=== PATIENT | female | born 1990 | race African-American/Black ===

== ENCOUNTER 2025-07-15 23:12 | Inpatient (IN) ==
[2025-07-16] MEDS ORDERED: LIDOCAINE 1% LOCAL 20 ML VIAL INFIL PRN (00:05)
[2025-07-16] MEDS ORDERED: OXYTOCIN 30 UNITS/NSS 30 UNITS/500 ML BAG IV PRN ×2 (00:05→11:40)
[2025-07-16 00:51] LABS: Hematocrit (blood only) 37.3 % (37.0-47.0); Hemoglobin 12.0 g/dL (12.0-16.0); Mean Corpuscular Hemoglobin 22.7 pg (25.0-34.0); Mean Corpuscular Volume 70.5 fL (80.0-100.0); Platelet Count 257 K/uL (130-400); RDW Standard Deviation 35.9 fL (36.4-46.3); Red Blood Count 5.29 M/uL (4.20-5.40); White Blood Count 17.76 K/ul (4.8-10.8)
--- NOTE | 2025-07-16 01:06 | History & Physical Report ---
Date of Service July 16, 2025 Assessment & Plan (1) : Plan: Admit in labor Admission and Anticipated Discharge Date Admission Date: July 16, 2025 History of Present Illness Chief Complaint: onset of labor at term Primary Care Provider: JUSTIN PCP 34 F [id number] at 38.4 weeks presents to L&D in early labor. GBS is negative. GDM diet control. Allergies Allergy/AdvReac Type Severity Reaction Status Date / Time miconazole Allergy Rash Verified 07/15/25 23:56 tioconazole Allergy Rash Verified 07/15/25 23:55 Home Medications Medication Instructions Recorded Confirmed Type PO 07/15/25 History iron PO 07/15/25 History Patient History Medical History No pertinent past medical history Social History Smoking Status: Never smoker Second Hand Exposure: No; Do You Dip or Chew Tobacco: No; Tobacco Cessation Education Requested by Patient: No Hx Alcohol Use: No Hx Substance Use: No Preferred Language: [place] Commission Clerk Required: No Beliefs That Will Affect Care: None marital status: Current Living Situation: Spouse Feels Safe at Home: Yes Safety Concerns: Feels Safe At This Time Assistive Devices: None OB History GDM diet control 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 Review of Systems All systems reviewed & are unremarkable except as noted in HPI & below Physical Exam Constitutional: WD/WN, vitals as above Eyes: PERRL, conjunctivae normal, anicteric sclerae Respiratory: normal respiratory effort Cardiovascular: Rate/Rhythm: regular rate and regular rhythm Gastrointestinal (Abdomen): Inspection/Auscultation: abdomen normal to inspection Musculoskeletal: Extremities: extremities normal to inspection Skin: no rashes, warm and dry Neurologic: patellar DTR's 2+ bilat, sensation intact Psychiatric: A+Ox3, euthymic affect Genitourinary: Manual OB Exam: + cervical dilation 3 cm and 4 cm OB Exam Monitor Tracing: + external FHT monitor used, + external uterine monitor used, + category I and + normal FHT variability Results & Data Vital Signs (Past 12 Hours) Vital Signs Temp Pulse Resp BP 07/15/25 23:36 93 H 109/73 07/15/25 23:31 36.7 C 18 Laboratory Results Laboratory Results - last 72 hr 07/16/25 00:36 WBC 17.76 H RBC 5.29 Hgb 12.0 Hct 37.3 MCV 70.5 L MCH 22.7 L MCHC 32.2 RDW Std Deviation 35.9 L RDW Coeff of Nicolas 14.5 Plt Count 257 MPV 11.6 Absolute Nucleated RBC 0.02 Nucleated RBC % (auto) 0.1 Monitoring External Monitor Cat 1 (1) Weeks of gestation: 38 weeks Qualified Code(s): Z3A.38 - 38 weeks gestation of
[2025-07-16] MEDS: LACTATED RINGER'S 1,000 ML IV PRN (02:58)
[2025-07-16] MEDS ORDERED: SODIUM CHLORIDE 0.9% PF INJ 10 ML VIAL EPI PRN (03:26)
[2025-07-16] MEDS ORDERED: ROPIVACAINE 0.5% PF 5 MG/ML 20 ML VIAL EPI PRN (03:26)
[2025-07-16] MEDS ORDERED: diphenhydrAMINE 50 MG/ML VIAL IV PRN (03:26)
[2025-07-16] MEDS ORDERED: BUPIVACAINE 0.25% PF 30 ML VIAL EPI PRN (03:26)
[2025-07-16] MEDS ORDERED: NALOXONE HCL 0.4 MG/1 ML VIAL/CARP IV PRN (03:26)
[2025-07-16] MEDS ORDERED: NALBUPHINE HCL INJ 10 MG/ML AMP IV PRN (03:26)
[2025-07-16] MEDS ORDERED: LIDOCAINE 2% MPF LOCAL 5 ML VIAL EPI PRN (03:26)
[2025-07-16] MEDS ORDERED: NALOXONE HCL 1 MG in SODIUM CHLORIDE 0.9% 1,000 ML IV PRN (03:26)
--- NOTE | 2025-07-16 03:28 | Anesthesiology Consultation ---
Date of Service July 16, 2025 Assessment & Plan (1) Encounter for pre-operative examination: Chart Review Chart Review: Patient NOT seen in Pre Admission Testing and Acceptable Risk for Labor Epidural Consults Requested none History Height/Weight Height: 5 ft 4 in Weight: 92.2 kg Allergies Allergy/AdvReac Type Severity Reaction Status Date / Time miconazole Allergy Rash Verified 07/15/25 23:56 tioconazole Allergy Rash Verified 07/15/25 23:55 Medications Home Medications Medication Instructions Recorded Confirmed Last Taken PO 07/15/25 07/15/25 08:00 iron PO 07/15/25 07/15/251999 Past Medical History Medical History No pertinent past medical history Social History Smoking Status: Never smoker Do You Dip or Chew Tobacco: No Hx Alcohol Use: No Hx Substance Use: No substance use type: does not use Physical Exam Vital Signs Last Vital Signs Temp 98.1 F 07/15/25 23:31 Pulse 76 07/16/25 03:26 Resp 18 07/15/25 23:31 BP 125/72 07/16/25 03:26 Testing Laboratory Results 07/16/25 00:36 Blood Type O Positive 07/16/25 00:36 Antibody Screen NEGATIVE 07/16/25 00:36 07/16/25 02:02 POC Glucose 116 H
[2025-07-16] MEDS: fentANYL 2 MCG/ML BUPIVacaine 0.125%-NSS 100ML BAG EPI PRN (04:15)
[2025-07-16] MEDS: BUPIVACAINE 0.25% PF 30 ML VIAL EPI STA (04:17)
[2025-07-16] MEDS: LIDOCAINE 2%/EPINEPHRINE 1:200,000 20 ML PF EPI STA (04:19)
[2025-07-16] MEDS: fentANYL 2 MCG/ML BUPIVacaine 0.125%-NSS 100ML BAG ONE (04:31)
[2025-07-16] MEDS: BUPIVACAINE 0.25% PF 30 ML VIAL ONE (04:31)
[2025-07-16] MEDS: SODIUM CHLORIDE 0.9% PF INJ 10 ML VIAL EPI STA (04:32)
[2025-07-16] MEDS: SODIUM CHLORIDE 0.9% PF INJ 10 ML VIAL ONE (04:32)
[2025-07-16] MEDS: LIDOCAINE 2%/EPINEPHRINE 1:200,000 20 ML PF ONE (04:32)
--- NOTE | 2025-07-16 09:08 | Obstetrical Progress Note ---
Date of Service July 16, 2025 Assessment & Plan Admission and Anticipated Discharge Date Admission Date: July 16, 2025 Subjective Patient is seen and examined. I reviewed her records, confirmed with her. She denies any medical problems except GDM A1, diet-controlled gestational diabetes. She denies any history of STDs including genital herpes, chlamydia, gonorrhea. Last growth scan was within normal limits, 53rd percentile. She was admitted this morning with regular contractions and has received epidural for pain and now she is comfortable. Vital signs stable afebrile, heart rate category 1, contractions every 2 to 6 minutes. Her cervix is 5 to 6 cm dilated, 80% effaced, head is low 0 station, bulging bag, AROM, light meconium noted, Continue to monitor closely, Will augment contractions with low-dose Pitocin per protocol, All questions were answered. Results & Data Vital Signs (Past 12 Hours) Vital Signs Temp Pulse Resp BP Pulse Ox O2 Del Method 07/16/25 09:02 121 H 116/69 07/16/25 09:01 99 H 97 07/16/25 08:56 101 H 97 07/16/25 08:51 105 H 98 07/16/25 08:46 100 H 110/65 96 07/16/25 08:41 114 H 97 07/16/25 08:36 110 H 97 07/16/25 08:31 104 H 97 07/16/25 08:30 117 H 16 110/72 07/16/25 08:26 114 H 97 07/16/25 08:21 104 H 97 07/16/25 08:16 105 H 98 07/16/25 08:15 99 H 118/74 07/16/25 08:11 115 H 97 07/16/25 08:06 115 H 96 07/16/25 08:02 100 H 118/72 07/16/25 08:01 102 H 99 07/16/25 07:56 82 98 07/16/25 07:51 87 97 07/16/25 07:46 98 07/16/25 07:46 89 07/16/25 07:46 83 101/58 L 07/16/25 07:41 90 98 07/16/25 07:36 86 97 07/16/25 07:31 83 98 07/16/25 07:26 94 H 96 07/16/25 07:21 89 98 07/16/25 07:16 92 H 96 07/16/25 07:15 94 H 113/62 07/16/25 07:11 101 H 97 07/16/25 07:06 103 H 97 07/16/25 07:04 36.6 C 16 Room Air 07/16/25 07:04 16 07/16/25 07:04 36.6 C 16 07/16/25 07:01 95 H 96 07/16/25 06:56 95 H 96 07/16/25 06:51 107 H 97 07/16/25 06:46 100 H 97 07/16/25 06:45 102 H 113/76 07/16/25 06:41 98 H 97 07/16/25 06:36 89 97 07/16/25 06:31 116 H 98 07/16/25 06:26 113 H 97 07/16/25 06:21 89 98 07/16/25 06:16 84 96 07/16/25 06:15 90 104/56 L 07/16/25 06:11 90 95 07/16/25 06:06 86 95 07/16/25 06:01 89 94 07/16/25 05:56 88 94 07/16/25 05:51 86 94 07/16/25 05:46 94 H 94 07/16/25 05:45 88 99/58 L 07/16/25 05:41 92 H 92 07/16/25 05:36 98 H 93 07/16/25 05:31 96 H 93 07/16/25 05:26 92 H 93 07/16/25 05:21 93 H 94 07/16/25 05:16 92 H 93 07/16/25 05:15 86 99/57 L 07/16/25 05:11 92 H 93 07/16/25 05:06 95 H 93 07/16/25 05:01 91 H 97 07/16/25 04:56 84 93 07/16/25 04:51 84 94 07/16/25 04:46 89 95 07/16/25 04:44 94 H 95/54 L 07/16/25 04:42 92 H 95/52 L 07/16/25 04:41 97 H 95 07/16/25 04:40 100 H 100/58 L 07/16/25 04:38 89 94/51 L 07/16/25 04:36 98 H 96/52 L 95 07/16/25 04:34 96 H 102/59 L 07/16/25 04:32 96 H 98/55 L 07/16/25 04:31 101 H 96 07/16/25 04:30 108 H 97/57 L 07/16/25 04:28 83 94/55 L 07/16/25 04:26 96 07/16/25 04:26 95 H 07/16/25 04:26 95 H 95/52 L 07/16/25 04:24 80 95/53 L 07/16/25 04:22 81 97/52 L 07/16/25 04:21 80 97 07/16/25 04:20 81 97/52 L 07/16/25 04:18 78 96/54 L 07/16/25 04:16 80 101/61 99 07/16/25 04:14 94 07/16/25 04:14 81 07/16/25 04:14 80 102/58 L 07/16/25 04:11 100 H 100 07/16/25 04:10 87 93/56 L 07/16/25 04:08 82 87/54 L 07/16/25 04:06 86 90/53 L 100 07/16/25 04:05 83 93/55 L 07/16/25 04:04 85 99/58 L 07/16/25 04:01 85 99 07/16/25 03:56 86 97 07/16/25 03:51 102 H 99 07/16/25 03:46 79 98 07/16/25 03:41 79 97 07/16/25 03:36 81 97 07/16/25 03:31 79 96 07/16/25 03:26 37.0 C 76 20 125/72 07/15/25 23:36 93 H 109/73 07/15/25 23:31 36.7 C 18
[2025-07-16] MEDS: OXYTOCIN 30 UNITS/NSS 30 UNITS/500 ML BAG IV PRN (09:30)
[2025-07-16] MEDS: METHYLERGONOVINE MALEATE 0.2 MG/ML AMP IM ONE (11:29)
[2025-07-16] MEDS: miSOPROStol 200 MCG TAB PR ONE (11:32)
[2025-07-16] MEDS ORDERED: HYDROCORTISONE ACETATE 25 MG SUPP PR PRN (11:40)
--- NOTE | 2025-07-16 11:44 | Delivery Summary ---
Vaginal Delivery Summary Date of Service July 16, 2025 Vaginal Delivery Summary Patient was found to be fully dilated and desired to push. She pushed for about 20 min and delivered the head and then shoulders with minimal traction. Nucal cordx1 reduced easily. The baby was handed off to the mother. The cord was clampedx2 and cut at 1 minute. The vagina and perineum were checked and found to have 2nd degree perineal laceration. Rectal exam was done and noted good sphincter tone. The gloves were changes. Perineal body muscles were brought to the midline with Allis clamps and repaired with [id number] stitches x 3. The vaginal mucosa was repaired with 2/0 vicryl and skin on subcuticular fashion. The placenta was delivered spontaneously as intact and complete. The uterus was explored and found to be empty. QBL was 507 ml. The fundus was firm. IV oxytocin was running and IM Methergine and rectal Cytotec were given. The baby was a viable Male , Apgars 8/9, the weight is pending The mother and the baby tolerated the procedure well. No complications happened and I was present during whole procedure.
[2025-07-16] MEDS: METHYLERGONOVINE MALEATE 0.2 MG/ML AMP ONE (12:10)
[2025-07-16] MEDS: DIPHTHER/TETAN/PERTUS Vaccine (Tdap, Adol/Adult) 0.5mL IM ONE (12:11)
[2025-07-16] MEDS ORDERED: SODIUM CHLORIDE 0.9% 100 ML IV PRN (12:24)
--- NOTE | 2025-07-16 12:53 | Anesthesia Procedure Note ---
Date of Service July 16, 2025 Anesthesia Post Epidural Note Vital Signs Vital Signs: Temp Pulse Resp BP Pulse Ox O2 Del Method 36.4 C L 84 19 119/61 100 Room Air 07/16/25 11:44 07/16/25 12:46 07/16/25 12:31 07/16/25 12:46 07/16/25 11:37 07/16/25 07:04 Notes Mental Status: alert / awake / arousable and participated in evaluation Nausea / Vomiting: adequately controlled Pain: adequately controlled Airway Patency, RR, SpO2: stable & adequate BP & HR: stable & adequate Hydration State: stable & adequate Neuraxial Anesthesia: was administered and sensory block is resolving Anesthetic Complications: no major complications apparent Epidural: Removed without complications and With tip intact
[2025-07-16] MEDS: POLYETHYLENE (MIRALAX) 17 GM PACK PO SCH (14:10)
[2025-07-16] MEDS: METHYLERGONOVINE MALEATE 0.2 MG TAB PO SCH (14:25)
[2025-07-16] MEDS: BENZOCAINE 20% SPRY 85 APPLN/85 GM CAN EXT PRN (14:25)
[2025-07-16] MEDS: IBUPROFEN 600 MG TAB PO PRN (14:25)
[2025-07-16] MEDS: MEASLES, MUMPS & RUBELLA VIRUS VACCINE (MMR) 0.5ML VIAL SQ ONE (14:28)
[2025-07-16] MEDS: DOCUSATE SODIUM 100 MG CAP PO SCH (21:17)
[2025-07-16] MEDS: ACETAMINOPHEN 325 MG TAB PO PRN (21:44)
[2025-07-17 07:19] LABS: Hematocrit (blood only) 32.7 % (37.0-47.0); Hemoglobin 10.6 g/dL (12.0-16.0); Mean Corpuscular Hemoglobin 22.7 pg (25.0-34.0); Mean Corpuscular Volume 70.0 fL (80.0-100.0); Platelet Count 222 K/uL (130-400); RDW Standard Deviation 35.8 fL (36.4-46.3); Red Blood Count 4.67 M/uL (4.20-5.40); White Blood Count 16.18 K/ul (4.8-10.8)
[2025-07-17] MEDS: FERROUS SULFATE 325 MG TAB PO SCH (08:53)
[2025-07-17] MEDS: PRENATAL VITAMIN 1 TAB PO SCH (08:53)
[2025-07-17 09:11] VITALS: RESP 18; O2SAT 99
[2025-07-17] MEDS: HYDROCORTISONE HC 2.5% CRM 30GM TUBE EXT PRN (10:45)
--- NOTE | 2025-07-17 11:29 | Obstetrical Progress Note ---
Date of Service July 17, 2025 Subjective Ambulation: ambulating normally Voiding: no voiding problems Passing Gas:: Yes Diet Tolerance:: regular diet Lochia:: Small Feeding Type:: breast feeding Current Pain Level(1-10): 0 doing well Physical Exam Constitutional WD/WN, vitals as above Gastrointestinal (Abdomen) Inspection/Auscultation: abdomen normal to inspection Musculoskeletal Extremities: extremities normal to inspection Skin no rashes, warm and dry Neurologic patellar DTR's 2+ bilat, sensation intact Psychiatric A+Ox3, euthymic affect Results & Data Vital Signs (Past 12 Hours) Vital Signs Temp Pulse Pulse Resp BP Pulse Ox O2 Del Method 07/17/25 08:45 36.5 C 99 H 18 105/68 99 Room Air 07/17/25 03:40 36.8 C 96 H 16 101/71 98 Room Air Laboratory Results Laboratory Results - last 72 hr 07/16/25 07/16/25 07/17/25 00:36 02:02 06:50 WBC 17.76 H 16.18 H RBC 5.29 4.67 Hgb 12.0 10.6 L Hct 37.3 32.7 L MCV 70.5 L 70.0 L MCH 22.7 L 22.7 L MCHC 32.2 32.4 RDW Std Deviation 35.9 L 35.8 L RDW Coeff of Nicolas 14.5 14.5 Plt Count 257 222 MPV 11.6 11.5 Absolute Nucleated RBC 0.02 Nucleated RBC % (auto) 0.1 POC Glucose 116 H Treponema pallidum Ab Negative Blood Type O Positive Antibody Screen NEGATIVE Crossmatch See Detail
[2025-07-17 12:17] VITALS: BP 107/74; PULSE 96; TEMP 98.2
--- NOTE | 2025-07-19 07:44 | Coding Query ---
PATHOLOGY To promote full compliance with coding requirements relating to patient care, physician participation is requested in all cases of remote coders uncertainty. Please assist us with the question(s) below: Please review the Pathology report and please document any relevant diagnosis(es) below: Diagnosis(es): Thank you Karely GRADY
== END 2025-07-17 16:50 | disposition home or self-care (01) | DRG 807 ==
LOC: OPB 23:12 → 4S1 23:17 → 4E2 07-16 14:24